=== PATIENT | male | born 1975 | race Caucasian/White ===

== ENCOUNTER 2018-01-06 16:39 | Inpatient (IN) | payer OTHER ==
[~2018-01-06] VITALS: Ht 182.9 cm; Wt 83.2 kg
[2018-01-06 17:41] LABS: PLATELET COUNT 298 K/uL (156-360)
[2018-01-06 17:55] LABS: CHLORIDE 100 mEq/L (99-109); POTASSIUM 4.2 mEq/L (3.7-5.4); SODIUM 132 mEq/L (136-147)
[2018-01-06 17:56] LABS: GLUCOSE 124 mg/dL (70-99)
[2018-01-06 18:00] LABS: CREATININE 1.2 mg/dL (0.6-1.3); GFR ESTIMATE (CALCULATED) > 59 mL/min/ (58.99-99999)
[2018-01-06 18:01] LABS: UREA NITROGEN (BUN) 13 mg/dL (9-23)
[2018-01-06 18:18] LABS: HEMATOCRIT 39.2 % (38.0-50.0); HEMOGLOBIN 14.2 G/DL (12.5-16.6); MCH 33.3 PG (29.0-34.0); MCHC 36.2 G/DL (30.0-36.0); RBC DIS.WIDTH-CV 11.8 % (11.8-14.6); RBC DIS.WIDTH-SD 39.5 % (39-53); RED BLOOD COUNT 4.26 M/uL (4.00-5.50)
[2018-01-06 23:01] VITALS: BP 131/76
[2018-01-07 04:17] VITALS: BP 132/75
[2018-01-07 06:21] LABS: BASOPHIL (%) 0.2 % (0-1); BASOPHIL COUNT 0.1 K/uL (0-0.1); EOSINOPHIL (%) 0 % (0-5); HEMATOCRIT 38.1 % (38.0-50.0); HEMOGLOBIN 13.4 G/DL (12.5-16.6); IMMATURE GRANULOCYTE (%) 0.7 % (0.0-0.7); LYMPHOCYTE (%) 3.1 % (15-42); LYMPHOCYTE COUNT 0.9 K/uL (1.0-2.8); MCH 32.6 PG (29.0-34.0); MCHC 35.2 G/DL (30.0-36.0); MCV 92.7 FL (86-99); MONOCYTE (%) 4.6 % (3-12); MONOCYTE COUNT 1.3 K/uL (0-0.8); NEUTROPHIL (%) 91.4 % (45-76); NEUTROPHIL COUNT 25.8 K/uL (1.8-6.4); PLATELET COUNT 278 K/uL (156-360); RBC DIS.WIDTH-CV 11.9 % (11.8-14.6); RBC DIS.WIDTH-SD 40.5 % (39-53); RED BLOOD COUNT 4.11 M/uL (4.00-5.50); WHITE BLOOD COUNT 28.2 K/uL (4.1-10.2)
[2018-01-07 06:39] LABS: CHLORIDE 104 MEQ/L (99-109); CREATININE 1.2 MG/DL (0.6-1.3); GFR ESTIMATE (CALCULATED) > 59 mL/min/ (58.99-99999); GLUCOSE 113 mg/dL (70-99); POTASSIUM 3.9 MEQ/L (3.7-5.4); SODIUM 134 MEQ/L (136-147); UREA NITROGEN (BUN) 12 mg/dL (9-23)
[2018-01-07 07:49] VITALS: BP 138/76
[2018-01-07 11:16] VITALS: BP 141/83
[2018-01-07 16:00] VITALS: BP 145/84
[2018-01-07 20:33] VITALS: BP 151/84
[2018-01-08 00:20] VITALS: BP 142/82
[2018-01-08 06:49] LABS: BASOPHIL (%) 0.2 % (0-1); BASOPHIL COUNT 0.1 K/uL (0-0.1); EOSINOPHIL (%) 0.1 % (0-5); HEMATOCRIT 38.3 % (38.0-50.0); HEMOGLOBIN 13.1 G/DL (12.5-16.6); IMMATURE GRANULOCYTE (%) 0.8 % (0.0-0.7); LYMPHOCYTE (%) 2.3 % (15-42); LYMPHOCYTE COUNT 0.6 K/uL (1.0-2.8); MCHC 34.2 G/DL (30.0-36.0); MCV 93.4 FL (86-99); MONOCYTE (%) 4.2 % (3-12); MONOCYTE COUNT 1.1 K/uL (0-0.8); NEUTROPHIL (%) 92.4 % (45-76); NEUTROPHIL COUNT 24.5 K/uL (1.8-6.4); PLATELET COUNT 248 K/uL (156-360); RBC DIS.WIDTH-CV 11.8 % (11.8-14.6); RBC DIS.WIDTH-SD 40.3 % (39-53); WHITE BLOOD COUNT 26.5 K/uL (4.1-10.2)
[2018-01-08 08:00] VITALS: BP 140/89
[2018-01-08 08:35] LABS: CHLORIDE 106 mEq/L (99-109); POTASSIUM 3.8 mEq/L (3.7-5.4); SODIUM 137 mEq/L (136-147)
[2018-01-08 08:37] LABS: GLUCOSE 118 mg/dL (70-99)
[2018-01-08 08:41] LABS: CREATININE 0.9 mg/dL (0.6-1.3); GFR ESTIMATE (CALCULATED) > 59 mL/min/ (58.99-99999)
[2018-01-08 08:42] LABS: UREA NITROGEN (BUN) 8 mg/dL (9-23)
[2018-01-08 16:33] VITALS: BP 134/86
[2018-01-09 00:32] VITALS: BP 127/94
[2018-01-09 06:29] LABS: BASOPHIL (%) 0.2 % (0-1); EOSINOPHIL (%) 1.2 % (0-5); EOSINOPHIL COUNT 0.2 K/uL (0-0.3); HEMATOCRIT 35.6 % (38.0-50.0); IMMATURE GRANULOCYTE (%) 0.6 % (0.0-0.7); LYMPHOCYTE (%) 4.4 % (15-42); LYMPHOCYTE COUNT 0.6 K/uL (1.0-2.8); MCH 31.5 PG (29.0-34.0); MCHC 33.7 G/DL (30.0-36.0); MCV 93.4 FL (86-99); MONOCYTE (%) 5.8 % (3-12); MONOCYTE COUNT 0.9 K/uL (0-0.8); NEUTROPHIL (%) 87.8 % (45-76); NEUTROPHIL COUNT 12.8 K/uL (1.8-6.4); PLATELET COUNT 226 K/uL (156-360); RBC DIS.WIDTH-CV 11.8 % (11.8-14.6); RBC DIS.WIDTH-SD 40.6 % (39-53); RED BLOOD COUNT 3.81 M/uL (4.00-5.50); WHITE BLOOD COUNT 14.6 K/uL (4.1-10.2)
[2018-01-09 06:50] LABS: CHLORIDE 104 MEQ/L (99-109); CREATININE 0.9 MG/DL (0.6-1.3); GFR ESTIMATE (CALCULATED) > 59 mL/min/ (58.99-99999); GLUCOSE 111 mg/dL (70-99); POTASSIUM 4.1 MEQ/L (3.7-5.4); SODIUM 138 MEQ/L (136-147); UREA NITROGEN (BUN) 9 mg/dL (9-23)
[2018-01-09 08:20] VITALS: BP 156/90
[2018-01-09 16:44] VITALS: BP 141/95
[2018-01-10] VITALS: BP 151/86
[2018-01-10 06:13] LABS: BASOPHIL (%) 0.3 % (0-1); EOSINOPHIL (%) 2.3 % (0-5); EOSINOPHIL COUNT 0.3 K/uL (0-0.3); HEMATOCRIT 33.5 % (38.0-50.0); HEMOGLOBIN 11.5 G/DL (12.5-16.6); IMMATURE GRANULOCYTE (%) 0.4 % (0.0-0.7); LYMPHOCYTE (%) 6.1 % (15-42); LYMPHOCYTE COUNT 0.7 K/uL (1.0-2.8); MCH 31.9 PG (29.0-34.0); MCHC 34.3 G/DL (30.0-36.0); MCV 93.1 FL (86-99); MONOCYTE (%) 7.2 % (3-12); MONOCYTE COUNT 0.9 K/uL (0-0.8); NEUTROPHIL (%) 83.7 % (45-76); PLATELET COUNT 273 K/uL (156-360); RBC DIS.WIDTH-CV 11.7 % (11.8-14.6); RBC DIS.WIDTH-SD 40.1 % (39-53)
[2018-01-10 06:35] LABS: CHLORIDE 106 MEQ/L (99-109); CREATININE 0.9 MG/DL (0.6-1.3); GFR ESTIMATE (CALCULATED) > 59 mL/min/ (58.99-99999); GLUCOSE 98 mg/dL (70-99); POTASSIUM 3.9 MEQ/L (3.7-5.4); SODIUM 138 MEQ/L (136-147); UREA NITROGEN (BUN) 9 mg/dL (9-23)
[2018-01-10 12:33] VITALS: BP 130/74
[2018-01-10 23:27] VITALS: BP 145/81
[2018-01-11 08:31] VITALS: BP 166/97
[2018-01-11 15:31] VITALS: BP 170/100
[2018-01-11 23:25] VITALS: BP 163/82
[2018-01-12 06:05] LABS: HEMATOCRIT 37.4 % (38.0-50.0); MCH 31.9 PG (29.0-34.0); MCHC 34.8 G/DL (30.0-36.0); MCV 91.9 FL (86-99); NRBC (%) 0.2 /100 WBC (0-0); RBC DIS.WIDTH-CV 11.7 % (11.8-14.6); RBC DIS.WIDTH-SD 39.6 % (39-53); RED BLOOD COUNT 4.07 M/uL (4.00-5.50); WHITE BLOOD COUNT 12.5 K/uL (4.1-10.2)
[2018-01-12 06:33] LABS: PLATELET COUNT 435 K/uL (156-360)
[2018-01-12 07:26] LABS: CHLORIDE 102 MEQ/L (99-109); CREATININE 0.9 MG/DL (0.6-1.3); GFR ESTIMATE (CALCULATED) > 59 mL/min/ (58.99-99999); GLUCOSE 95 mg/dL (70-99); POTASSIUM 4.2 MEQ/L (3.7-5.4); SODIUM 141 MEQ/L (136-147); UREA NITROGEN (BUN) 8 mg/dL (9-23)
[2018-01-12 08:39] VITALS: BP 157/92
[2018-01-12] MEDS ORDERED: KEFLEX500 MG PO (09:58)
[2018-01-12] MEDS ORDERED: BACTRIM,SEPT1 TABLET PO (09:58)
[2018-01-12] MEDS ORDERED: IBU600 MG PO (09:58)
[2018-01-12] MEDS ORDERED: HYDROCODON-ACE1 EAC7 PO (09:58)
== END 2018-01-12 12:38 | disposition home or self-care (01) | DRG 872 ==
LOC: EME 16:39 → 3EAST 21:08 → EDOF 21:08 → ENRESERV 21:11 → 3EAST 22:52
PROVIDERS: Emergency Medicine; Hospitalist; Internal Medicine; Student in an Organized Health Care Education/Training Program
DX: A41.9 Sepsis, unspecified organism (principal); L03.114 Cellulitis of left upper limb; M70.22 Olecranon bursitis, left elbow; F14.10 Cocaine abuse, uncomplicated; F12.10 Cannabis abuse, uncomplicated; R03.0 Elevated blood-pressure reading, without diagnosis of hypertension; F17.200 Nicotine dependence, unspecified, uncomplicated
CPT/HCPCS: 73201; 80048; 80202; 83605; 85025; 85027; 87040; 87070; 87075; 87205; 87641; 99281; 99285; J0690; J0696; J1650; J1885; J3370; J7030